=== PATIENT | male | born 1945 | race Caucasian/White ===

== ENCOUNTER 2025-01-07 17:37 | Observation (INO) | payer MEDICARE, OTHER ==
--- NOTE | 2025-01-07 18:05 | ED ---
Fall HPI - General Chief Complaint: Fall Stated Complaint: Fall Time Seen by Provider: 01/07/25 17:43 Source: patient, EMS, RN notes reviewed Mode of arrival: EMS Limitations: no limitations - History of Present Illness Initial Comments: 79-year-old male presents emergency department complaint of a fall. Patient states he tripped, caught up in a garden hose falling striking his chest, right flank region. Patient states that he has pain chest, right flank right ribs. Patient states he noted some blood when he tried to urinate here in the emergency department. He has mild abdominal pressure. No prior urinary symptoms denies fevers or chills no head injury no loss conscious. - Related Data Allergies Allergy/AdvReac Type Severity Reaction Status Date / Time iodine Allergy Unknown Verified 01/07/25 17:40 Review of Systems ROS Statement: Those systems with pertinent positive or pertinent negative responses have been documented in the HPI. ROS Other: All systems not noted in ROS Statement are negative. Past Medical History Past Medical History: Cancer, Hypertension Additional Past Surgical History / Comment(s): skin ca removed scalp Past Alcohol Use History: None Reported Past Drug Use History: None Reported General Exam Limitations: no limitations General appearance: alert, in no apparent distress Head exam: Present: atraumatic, normocephalic, normal inspection Eye exam: Present: normal appearance, PERRL, EOMI. Absent: scleral icterus, conjunctival injection, periorbital swelling ENT exam: Present: normal exam, mucous membranes moist Neck exam: Present: normal inspection. Absent: tenderness, meningismus, lymphadenopathy Respiratory exam: Present: normal lung sounds bilaterally, chest wall tenderness. Absent: respiratory distress, wheezes, rales, rhonchi, stridor Cardiovascular Exam: Present: regular rate, normal rhythm, normal heart sounds. Absent: systolic murmur, diastolic murmur, rubs, gallop, clicks GI/Abdominal exam: Present: soft, normal bowel sounds. Absent: distended, tenderness, guarding, rebound, rigid Back exam: Present: normal inspection, full ROM, tenderness, CVA tenderness (R). Absent: paraspinal tenderness, vertebral tenderness Neurological exam: Present: alert, oriented X3, CN II-XII intact, reflexes normal. Absent: motor sensory deficit Skin exam: Present: warm, dry, intact, normal color. Absent: rash Course Vital Signs 01/07/25 17:41 Temperature 97.1 F L Pulse Rate 82 Respiratory 18 Rate Blood Pressure 160/90 O2 Sat by Pulse 97 Oximetry Medical Decision Making - Medical Decision Making Was pt. sent in by a medical professional or institution ([facility] Cervantes, SEO MARKETING SPECIALIST, urgent care, hospital, or retirement...) When possible be specific @ -No Did you speak to anyone other than the patient for history (EMS, parent, family, police, friend...)? What history was obtained from this source @ -No Did you review nursing and triage notes (agree or disagree)? Why? @ -I reviewed and agree with nursing and triage notes Were old charts reviewed (outside hosp., previous admission, EMS record, old EKG, old radiological studies, urgent care reports/EKG's, retirement records)? Report findings @ -No old charts were reviewed Differential Diagnosis (chest pain, altered mental status, abdominal pain women, abdominal pain men, vaginal bleeding, weakness, fever, dyspnea, syncope, headache, dizziness, GI bleed, back pain, seizure, CVA, palpatations, mental health, musculoskeletal)? @ -fall, rib contusion, rib fracture pneumothorax liver laceration, renal laceration EKG interpreted by me (3pts min.). @ -As above X-rays interpreted by me (1pt min.). @ -None done CT interpreted by me (1pt min.). @ -CT brain, C-spine, chest abdomen pelvis showing 4 rib fractures on the right without other acute process. U/S interpreted by me (1pt. min.). @ -None done What testing was considered but not performed or refused? (CT, X-rays, U/S, labs )? Why? @ -None What meds were considered but not given or refused? Why? @ -None Did you discuss the management of the patient with other professionals (professionals i.e. DIO Cervantes, SEO MARKETING SPECIALIST, lab, RT, psych nurse, social work therapist, machine stamper, teacher, employment security officer, case managers)? Give summary @ -Dr. Colon for admission Was smoking cessation discussed for >3mins.? @ -No Was critical care preformed (if so, how long)? @ -No Were there social determinants of health that impacted care today? How? (Homelessness, low income, unemployed, alcoholism, drug addiction, transportation, low edu. Level, literacy, decrease access to med. care, snf, rehab)? @ -No Was there de-escalation of care discussed even if they declined (Discuss DNR or withdrawal of care, Hospice)? DNR status @ -No What co-morbidities impacted this encounter? (DM, HTN, Smoking, COPD, CAD, Cancer, CVA, ARF, Chemo, Hep., AIDS, mental health diagnosis, sleep apnea, morbid obesity)? @ -None Was patient admitted / discharged? Hospital course, mention meds given and route, prescriptions, significant lab abnormalities, going to OR and other pe rtinent info. @ -Mated patient presented after a fall. Patient has multiple rib fractures. Patient be admitted for pain management, pulmonary evaluation anesthesia evaluation Undiagnosed new problem with uncertain prognosis? @ -No Drug Therapy requiring intensive monitoring for toxicity (Heparin, Nitro, Insulin, Cardizem)? @ -No Were any procedures done? @ -No Diagnosis/symptom? @ -Fall multiple rib fractures Acute, or Chronic, or Acute on Chronic? @ -Acute Uncomplicated (without systemic symptoms) or Complicated (systemic symptoms)? @ -Complicated Side effects of treatment? @ -No Exacerbation, Progression, or Severe Exacerbation? @ -No Poses a threat to life or bodily function? How? (Chest pain, [place], [place], pneumonia, PE, COPD, DKA, ARF, appy, cholecystitis, CVA, Diverticulitis, Homicidal, Suicidal, threat to staff... and all critical care pts) @ -No - Lab Data Result diagrams: 01/07/25 17:59 01/07/25 17:59 Lab Results 01/07/25 01/07/25 01/07/25 Range/Units 17:59 17:59 18:00 WBC 8.33 (4.50-10.00) 10*3/uL RBC 4.56 (4.40-5.60) 10*6/uL Hgb 14.3 (13.0-17.0) g/dL Hct 43.4 (39.6-50.0) % MCV 95.2 (80.0-97.0) fL MCH 31.4 (27.0-32.0) pg MCHC 32.9 (32.0-37.0) g/dL Plt Count 134 L (140-440) 10*3/uL MPV 10.4 (9.5-12.2) fL Immature Gran % (Auto) 1.2 % Neutrophils % 82.4 % Lymphocytes % 9.6 % Monocytes % 4.9 % Eosinophils % 1.3 % Basophils % 0.6 % Immature Gran # 0.10 H (0.00-0.04) 10*3/uL Neutrophils # 6.86 (1.80-7.70) 10*3/uL Lymphocytes # 0.80 L (0.90-5.00) 10*3/uL Monocytes # 0.41 (0.20-1.00) 10*3/uL Eosinophils # 0.11 (0.04-0.35) 10*3/uL Basophils # 0.05 (0.00-0.10) 10*3/uL Immature Plt Fraction 2.8 (1.1-6.1) % Sodium 139 (137-145) mmol/L Potassium 4.8 (3.5-5.1) mmol/L Chloride 106 (98-107) mmol/L Carbon Dioxide 24 (22-30) mmol/L Anion Gap 9 mmol/L BUN 21 H (9-20) mg/dL Creatinine 1.08 (0.66-1.25) mg/dL Est GFR (CKD-EPI)AfAm 76 (>60 ml/min/1.73 sqM) Est GFR (CKD-EPI)NonAf 66 (>60 ml/min/1.73 sqM) Glucose 92 (74-99) mg/dL Calcium 9.2 (8.4-10.2) mg/dL Total Bilirubin 0.6 (0.2-1.3) mg/dL AST 22 (17-59) U/L ALT 15 (4-49) U/L Alkaline Phosphatase 87 (38-126) U/L Total Protein 6.6 (6.3-8.2) g/dL Albumin 4.2 (3.5-5.0) g/dL Urine Color Light Red Urine Appearance Cloudy (Clear) Urine pH 6.0 (5.0-8.0) Ur Specific [place] 1.020 (1.001-1.035) Urine Protein Trace H (Negative) Urine Glucose (UA) Negative (Negative) Urine Ketones Negative (Negative) Urine Blood Large H (Negative) Urine Nitrite Negative (Negative) Urine Bilirubin Negative (Negative) Urine Urobilinogen <2.0 (<2.0) mg/dL Ur Leukocyte Esterase Trace H (Negative) Urine RBC >182 H (0-5) /hpf Urine WBC 7 H (0-5) /hpf Ur Squamous Epith Cells <1 (0-4) /hpf Urine Mucus Rare H (None) /hpf Disposition Clinical Impression: Fall, Multiple fractures of ribs Disposition: ADMITTED IP TO THIS [facility] Condition: Fair Referrals: Nonstaff,Physician [Primary Care Provider] - 1-2 days Time of Disposition: 19:57
[2025-01-07] MEDS: SODIUM CHLORIDE 0.9% 1,000 ML IV ONE (18:09)
[2025-01-07] MEDS: methylPREDNISolone SOD SUCCI 125 MG/2 ML VIAL IV STA (18:09)
[2025-01-07] MEDS: diphenhydrAMINE 50 MG/ML 1 ML VIAL IVP STA (18:10)
[2025-01-07] MEDS: FAMOTIDINE 20 MG/2 ML VIAL IV STA (18:10)
[2025-01-07 18:13] LABS: Basophils # (A) 0.05 10*3/uL (0.00-0.10); Basophils % (A) 0.6 %; Eosinophils # (A) 0.11 10*3/uL (0.04-0.35); Eosinophils % (A) 1.3 %; HCT 43.4 % (39.6-50.0); HGB 14.3 g/dL (13.0-17.0); Immature Platelet Fraction 2.8 % (1.1-6.1); Lymphocytes # (A) 0.80 10*3/uL (0.90-5.00); Lymphocytes % (A) 9.6 %; MCH 31.4 pg (27.0-32.0); MCHC 32.9 g/dL (32.0-37.0); MCV 95.2 fL (80.0-97.0); Monocytes # (A) 0.41 10*3/uL (0.20-1.00); Monocytes % (A) 4.9 %; Neutrophils # (A) 6.86 10*3/uL (1.80-7.70); Neutrophils % (A) 82.4 %; Platelet Count 134 10*3/uL (140-440); RBC 4.56 10*6/uL (4.40-5.60); RDW 14.3 % (11.5-14.5); WBC 8.33 10*3/uL (4.50-10.00)
[2025-01-07 18:21] LABS: ALT 15 U/L (4-49); AST 22 U/L (17-59); African American GFR (CKD) 76 (>60 ml/min/1.73 sqM); Albumin 4.2 g/dL (3.5-5.0); Alkaline Phosphatase 87 U/L (38-126); Anion Gap 9 mmol/L; Blood Urea Nitrogen 21 mg/dL (9-20); Calcium 9.2 mg/dL (8.4-10.2); Carbon Dioxide 24 mmol/L (22-30); Chloride 106 mmol/L (98-107); Glucose 92 mg/dL (74-99); Non-African American GFR(CKD) 66 (>60 ml/min/1.73 sqM); Potassium 4.8 mmol/L (3.5-5.1); Sodium 139 mmol/L (137-145); Total Protein 6.6 g/dL (6.3-8.2)
[2025-01-07 18:49] LABS: Bilirubin,Urine Negative (Negative); Blood,Urine Large (Negative); Color,Urine Light Red; Glucose,Urine (UA) Negative (Negative); Ketones,Urine Negative (Negative); Leukocyte Esterase,Urine Trace (Negative); Mucus,Urine Rare /hpf; Nitrite,Urine Negative (Negative); PH, Urine 6.0 (5.0-8.0); Protein,Urine Trace (Negative); RBC,Urine >182 /hpf (0-5); Specific Gravity,Urine 1.020 (1.001-1.035); Squamous Epithelial Cell,Urine <1 /hpf (0-4); Urobilinogen,Urine <2.0 mg/dL (<2.0); WBC,Urine 7 /hpf (0-5)
--- NOTE | 2025-01-07 19:45 | CT ---
EXAMINATION TYPE: CT ChestAbdPelvis w con DATE OF EXAM: 01/07/2025 7:28 PM COMPARISON: None. CLINICAL INDICATION: Male, 79 years old with history of fall, pain, hematuria; PHH, Fall Pt c/o simon al chest pain, R rib pain. Denies LOC, neck pain, back pain. During triage, pt reports he needs to v oid urgently. Pt reports difficulty voiding, burning, and hematuria. Technique: CT ChestAbdPelvis w con; Multiple axial images were obtained. Two-dimensional coronal and sagittal reconstructions were obtained. Contrast used:100 ml mL of Isovue 300 with IV Contrast, (None if empty) Oral contrast used: without Oral Contrast CT DLP: 1107.3 mGycm, Automated exposure control for dose reduction was used. Findings: CHEST: LUNGS/ PLEURA: No focal consolidation, pneumothorax or pleural effusion. AIRWAY: Patent and unremarkable. HEART: Size within normal limits. MEDIASTINUM: No gross evidence of adenopathy. VASCULATURE: No aortic aneurysm. MUSCULOSKELETAL: No acute osseous abnormalities. SOFT TISSUES/LYMPH NODES: Unremarkable. LOWER NECK: No significant findings. ABDOMEN: ABDOMEN LIVER: Unremarkable GALLBLADDER AND BILE DUCTS: Unremarkable. PANCREAS: Unremarkable. SPLEEN: Unremarkable. ADRENAL GLANDS: Unremarkable. KIDNEYS AND URETERS: No evidence of hydronephrosis or renal calculus. The ureters are unremarkable. PELVIS BLADDER: Unremarkable REPRODUCTIVE: Unremarkable. ABDOMEN & PELVIS STOMACH AND BOWEL: Stomach and duodenum are unremarkable. No evidence of bowel obstruction. PERITONEUM/RETROPERITONEUM: No evidence of pneumoperitoneum or free fluid. VASCULATURE: No evidence of aortic aneurysm. MUSCULOSKELETAL: Newly displaced fracture of the right lateral seventh rib and nondisplaced fractures of the right anterior fourth, fifth and sixth ribs. Age-indeterminate possible chronic moderate (kandy roximately 40% vertebral body height loss) compression deformity of the T3 vertebral body with associ ated Schmorl's node formation. LYMPH NODES: No gross evidence for lymphadenopathy. SOFT TISSUE/ABDOMINAL WALL: Unremarkable IMPRESSION: 1. Minimally displaced fracture of the right lateral seventh rib and nondisplaced fractures of the f ourth-sixth right anterior ribs. 2. Age-indeterminate moderate compression deformity of the T3 vertebral body, possibly chronic given associated Schmorl's node formation. Consider correlation with any prior outside imaging if availabl e. 3. No acute traumatic abnormality in the abdomen/pelvis. [facility], , 01/07/2025 7:43 PM
[2025-01-07] MEDS ORDERED: NALOXONE 0.4 MG/ML 1 ML VIAL IV PRN (19:58)
[2025-01-07] MEDS ORDERED: ONDANSETRON 4 MG/2 ML VIAL IVP PRN (19:58)
[2025-01-07] MEDS ORDERED: KETOROLAC 15 MG/ML 1 ML VIAL IVP PRN (19:58)
[2025-01-07] MEDS ORDERED: HYDROmorphone 0.5 MG/0.5 ML SYRINGE IVP PRN (20:00)
[2025-01-07] MEDS: HYDROmorphone 0.5 MG/0.5 ML SYRINGE IVP STA (22:06)
[2025-01-07] MEDS: ONDANSETRON 4 MG/2 ML VIAL IVP STA (22:06)
[2025-01-07 22:21] VITALS: RESP 16
[2025-01-08 07:28] LABS: Basophils # (A) 0.01 10*3/uL (0.00-0.10); Basophils % (A) 0.2 %; Eosinophils # (A) 0.00 10*3/uL (0.04-0.35); Eosinophils % (A) 0.0 %; HCT 41.2 % (39.6-50.0); HGB 13.1 g/dL (13.0-17.0); Lymphocytes # (A) 0.37 10*3/uL (0.90-5.00); Lymphocytes % (A) 6.0 %; MCH 30.3 pg (27.0-32.0); MCHC 31.8 g/dL (32.0-37.0); MCV 95.4 fL (80.0-97.0); Monocytes # (A) 0.27 10*3/uL (0.20-1.00); Monocytes % (A) 4.4 %; Neutrophils # (A) 5.46 10*3/uL (1.80-7.70); Neutrophils % (A) 89.1 %; Platelet Count 129 10*3/uL (140-440); RBC 4.32 10*6/uL (4.40-5.60); RDW 14.6 % (11.5-14.5); WBC 6.13 10*3/uL (4.50-10.00)
--- NOTE | 2025-01-08 07:50 | XR ---
EXAMINATION TYPE: XR chest 1V portable DATE OF EXAM: 01/08/2025 7:39 AM COMPARISON: CT chest abdomen and pelvis 01/07/2025 TECHNIQUE: XR chest 1V portable Portable AP radiograph of the chest. CLINICAL INDICATION:Male, 79 years old with history of Chest Trauma; pain FINDINGS: Lungs/Pleura: There is no evidence of pleural effusion, focal consolidation, or pneumothorax. Pulmonary vascularity: Unremarkable. Heart/mediastinum: Cardiomediastinal silhouette is enlarged. Musculoskeletal: Known right-sided rib fractures are better appreciated on recent CT. IMPRESSION: Known right-sided rib fractures are better appreciated on recent CT. No pneumothorax. [facility], , 01/08/2025 7:47 AM
[2025-01-08] MEDS: HYDROcodone/APAP 5-325MG 1 EACH TAB PO PRN (08:06)
[2025-01-08 08:17] VITALS: BP 128/76; PULSE 71; TEMP 98.8
[2025-01-08] MEDS: MIDODRINE 5 MG TAB PO SCH (09:30)
[2025-01-08] MEDS: SERTRALINE 50 MG TAB PO SCH (09:43)
[2025-01-08] MEDS: ATORVASTATIN 40 MG TAB PO SCH (09:43)
[2025-01-08] MEDS: TAMSULOSIN 0.4 MG CAP.ER.24H PO SCH (09:43)
[2025-01-08] MEDS: FLUDROCORTISONE 0.1 MG TAB PO SCH (09:43)
[2025-01-08] MEDS: FINASTERIDE 5 MG TAB PO SCH (09:43)
[2025-01-08] MEDS: LORATADINE-PSEUDOEPH 5-120 MG 1 EACH TAB.ER.12H PO SCH (09:43)
--- NOTE | 2025-01-08 12:40 | P.CNPUL ---
History of Present Illness Consult date: 01/08/25 Reason for consult: chest pain Chief complaint: Fall History of present illness: This is a 79-year-old male patient, lives in [place] and he owns a property in [facility] and the patient was doing some work on his yard when he tripped on a hose and he fell. He landed on his right side and he came into the emergency department complaining of pain in his chest and right flank and right rib cage. He did encounter some transient hematuria which recovered and the patient's urine output is currently clear. In the emergency, the patient had a CAT scan of the chest abdomen pelvis and it showed minimally displaced right lateral seventh rib and a nondisplaced fractures involving the 4th through 6th rib on the right. The patient also has moderate compression fracture of the T3 vertebral spine. No other acute thoracic abnormalities. No other acute intra-abdominal abnormalities. No change in mental status. No headaches. No head trauma. No loss of consciousness. No seizure activity. No cardiac a rrhythmias. Blood work essentially within normal limits. UA showed blood consistent with hematuria. The patient has been somewhat unsteady in his gait according to family. He is currently using the incentive spirometer. He is pulling approximately 3000 on his I-S. Pain is under adequate control and the patient is currently on Toradol and [place] orally. He has previous history of prostate cancer and is treated with radiation therapy and his PSA has been low. He has hyperlipidemia maintained on Lipitor and is also on Proscar and Flomax. Review of Systems Constitutional: Reports as per HPI Eyes: bilateral as per HPI, bilateral blurred vision, bilateral bulging eye, bilateral decreased vision, bilateral diplopia, bilateral discharge, bilateral dry eye, bilateral irritation, bilateral itching, bilateral pain, bilateral ph otophobia, bilateral loss of peripheral vision, bilateral loss of vision, bilateral tunnel vision/blind spots Ears: deny: decreased hearing, ear discharge, earache, tinnitus Ears, nose, mouth and throat: Reports as per HPI Breasts: absent: as per HPI, gynecomastia Cardiovascular: Reports as per HPI, Reports chest pain Respiratory: Reports as per HPI Gastrointestinal: Reports as per HPI Genitourinary: Reports as per HPI, Reports hematuria, Reports urinary frequency, Reports urinary hesitancy, Reports urinary retention Musculoskeletal: Reports as per HPI Musculoskeletal: absent: ankle pain, ankle stiffness, ankle swelling, as per HPI, elbow pain, elbow stiffness, elbow swelling, foot pain, foot stiffness, foot swelling, hand pain, hand stiffness, hand swelling, hip pain, hip stiffness, hip swelling, knee pain, knee stiffness, knee swelling, shoulder pain, shoulder stiffness, shoulder swelling, wrist pain, wrist stiffness, wrist swelling Integumentary: Reports as per HPI Neurological: Reports as per HPI Psychiatric: Reports as per HPI Endocrine: Reports as per HPI Hematologic/Lymphatic: Reports as per HPI Allergic/Immunologic: Reports as per HPI Past Medical History Past Medical History: Cancer Additional Past Medical History / Comment(s): Prostate CA 2013, POST RADIATION THERAPY History of Any Multi-Drug Resistant Organisms: None Reported Additional Past Surgical History / Comment(s): skin ca removed scalp, knee replacement Smoking Status: Never smoker Past Alcohol Use History: None Reported Past Drug Use History: None Reported Medications and Allergies Home Medications Medication Instructions Recorded Confirmed Type Atorvastatin [Lipitor] 40 mg PO DAILY 01/07/25 01/07/25 History Finasteride [Proscar] 5 mg PO DAILY 01/07/25 01/07/25 History Fludrocortisone [Florinef] 0.1 mg PO DAILY 01/07/25 01/07/25 History Loratadine/Pseudoephedrine 1 tab PO DAILY 01/07/25 01/07/25 History [Loratadine-D 24 Hour Tablet] Midodrine HCl 10 mg PO TID 01/07/25 01/07/25 History Sertraline [Zoloft] 50 mg PO DAILY 01/07/25 01/07/25 History Tamsulosin [Flomax] 0.4 mg PO BID 01/07/25 01/07/25 History Allergies Allergy/AdvReac Type Severity Reaction Status Date / Time iodine Allergy Anaphylaxis Verified 01/07/25 20:20 Physical Exam Vitals: Vital Signs Temp Pulse Pulse Resp BP BP Pulse Ox 01/08/25 08:00 98.8 F 71 16 128/76 95 01/08/25 01:10 98 F 77 16 120/78 97 01/07/25 21:40 98.2 F 90 16 147/86 95 01/07/25 17:41 97.1 F L 82 18 160/90 97 Intake and Output 01/07/25 01/08/25 01/08/25 22:59 06:59 14:59 Output Total 500 Balance -500 Output: Urine 500 Other: Voiding Method Diaper External Catheter Weight 81.647 kg The patient appeared well nourished and normally developed. Vital signs as documented. The patient is calm and comfortable on room air oxygen. Head exam is unremarkable. No scleral icterus or corneal arcus noted. Neck is without jugular venous distension, thyromegaly, or carotid bruits. Carotid upstrokes are brisk bilaterally. Lungs are clear to auscultation and percussion. The patient is encountering some soreness and tenderness over the right anterior chest area upon palpation. No deformities. Equal and symmetrical air entry bilaterally. Cardiac exam reveals the PMI to be normally sized and situated. Rhythm is regular. First and second heart sounds normal. No murmurs, rubs or gallops. Abdominal exam reveals normal bowel sounds, no masses, no organomegaly and no aortic enlargement. Extremities are nonedematous and both femoral and pedal pulses are normal. Examination of the skin revealed no evidence of significant rashes, suspicious appearing nevi or other concerning lesions. Neurologically, the patient is awake and alert and the patient does not have any focal neurological deficit. Cranial nerves are essentially intact. Results - Laboratory Findings CBC and BMP: 01/08/25 06:23 01/07/25 17:59 Abnormal lab findings: Abnormal Labs 01/07/25 01/07/25 01/07/25 17:59 17:59 18:00 RBC MCHC RDW Plt Count 134 L Immature Gran # 0.10 H Lymphocytes # 0.80 L Eosinophils # BUN 21 H Urine Protein Trace H Urine Blood Large H Ur Leukocyte Esterase Trace H Urine RBC >182 H Urine WBC 7 H Urine Mucus Rare H 01/08/25 06:23 RBC 4.32 L MCHC 31.8 L RDW 14.6 H Plt Count 129 L Immature Gran # Lymphocytes # 0.37 L Eosinophils # 0.00 L BUN Urine Protein Urine Blood Ur Leukocyte Esterase Urine RBC Urine WBC Urine Mucus - Diagnostic Findings CT scan - chest: image reviewed Assessment and Plan Plan: Fall Nondisplaced traumatic right-sided rib fractures involving 4 through 6 and seventh rib. No evidence of pneumothorax. No evidence of hemothorax. No evidence of any pulmonary contusion. Oxygenation is stable and the patient using incentive spirometer Chest wall pain secondary to above Hematuria secondary to trauma, recovered and the patient's urine output is clear Prostate cancer, history of, treated with radiation therapy back in 2013 Hyperlipidemia Compression fracture of the T3 spine, likely chronic Plan Continue using incentive spirometer Pain control Assess mobility. The patient was provided a walker. The patient was going to work with the nursing staff and his ability to walk safely will be evaluated. Family is interested in taking the patient home. I think this is possible if the patient is cleared by trauma surgery and he has safe mobility and gait. Respiratory status is stable.
--- NOTE | 2025-01-08 13:13 | P.GSHP ---
History of Present Illness 79-year-old male presents emergency department complaint of a fall. Patient states he tripped, caught up in a garden hose falling striking his chest, right flank region. Patient states that he has pain chest, right flank right ribs. Patient states he noted some blood when he tried to urinate here in the emergency department. He has mild abdominal pressure. No prior urinary symptoms denies fevers or chills no head injury no loss conscious. - Constitutional Constitutional: Reports as per HPI Past Medical History Past Medical History: Cancer Additional Past Medical History / Comment(s): Prostate CA 2013, POST RADIATION THERAPY History of Any Multi-Drug Resistant Organisms: None Reported Additional Past Surgical History / Comment(s): skin ca removed scalp, knee repl acement Smoking Status: Never smoker Past Alcohol Use History: None Reported Past Drug Use History: None Reported Medications and Allergies Home Medications Medication Instructions Recorded Confirmed Type Atorvastatin [Lipitor] 40 mg PO DAILY 01/07/25 01/07/25 History Finasteride [Proscar] 5 mg PO DAILY 01/07/25 01/07/25 History Fludrocortisone [Florinef] 0.1 mg PO DAILY 01/07/25 01/07/25 History Loratadine/Pseudoephedrine 1 tab PO DAILY 01/07/25 01/07/25 History [Loratadine-D 24 Hour Tablet] Midodrine HCl 10 mg PO TID 01/07/25 01/07/25 History Sertraline [Zoloft] 50 mg PO DAILY 01/07/25 01/07/25 History Tamsulosin [Flomax] 0.4 mg PO BID 01/07/25 01/07/25 History HYDROcodone/APAP 5-325MG [[place] 1 tab PO Q8H PRN #15 tab 01/08/25 Rx 5-325] Allergies Allergy/AdvReac Type Severity Reaction Status Date / Time iodine Allergy Anaphylaxis Verified 01/07/25 20:20 Surgical - Exam Osteopathic Statement: *. No significant issues noted on an osteopathic structural exam other than those noted in the History and Physical/Consult. Vital Signs Temp Pulse Resp BP Pulse Ox 97.1 F L 82 18 160/90 97 01/07/25 17:41 01/07/25 17:41 01/07/25 17:41 01/07/25 17:41 01/07/25 17:41 gen: nad cv: rrr thoracic: pain upon palpation of the right lateral chest pul: non labored breathing abd: soft, non distended, non tender to palpation, back: no pain, no deformity Results - Labs 01/08/25 06:23 01/07/25 17:59 Abnormal Lab Results - Last 24 Hours (Table) 01/07/25 01/07/25 01/07/25 Range/Units 17:59 17:59 18:00 RBC (4.40-5.60) 10*6/uL MCHC (32.0-37.0) g/dL RDW (11.5-14.5) % Plt Count 134 L (140-440) 10*3/uL Immature Gran # 0.10 H (0.00-0.04) 10*3/uL Lymphocytes # 0.80 L (0.90-5.00) 10*3/uL Eosinophils # (0.04-0.35) 10*3/uL BUN 21 H (9-20) mg/dL Urine Protein Trace H (Negative) Urine Blood Large H (Negative) Ur Leukocyte Esterase Trace H (Negative) Urine RBC >182 H (0-5) /hpf Urine WBC 7 H (0-5) /hpf Urine Mucus Rare H (None) /hpf 01/08/25 Range/Units 06:23 RBC 4.32 L (4.40-5.60) 10*6/uL MCHC 31.8 L (32.0-37.0) g/dL RDW 14.6 H (11.5-14.5) % Plt Count 129 L (140-440) 10*3/uL Immature Gran # (0.00-0.04) 10*3/uL Lymphocytes # 0.37 L (0.90-5.00) 10*3/uL Eosinophils # 0.00 L (0.04-0.35) 10*3/uL BUN (9-20) mg/dL Urine Protein (Negative) Urine Blood (Negative) Ur Leukocyte Esterase (Negative) Urine RBC (0-5) /hpf Urine WBC (0-5) /hpf Urine Mucus (None) /hpf Diabetes panel 01/07/25 Range/Units 17:59 Sodium 139 (137-145) mmol/L Potassium 4.8 (3.5-5.1) mmol/L Chloride 106 (98-107) mmol/L Carbon Dioxide 24 (22-30) mmol/L BUN 21 H (9-20) mg/dL Creatinine 1.08 (0.66-1.25) mg/dL Glucose 92 (74-99) mg/dL Calcium 9.2 (8.4-10.2) mg/dL AST 22 (17-59) U/L ALT 15 (4-49) U/L Alkaline Phosphatase 87 (38-126) U/L Total Protein 6.6 (6.3-8.2) g/dL Albumin 4.2 (3.5-5.0) g/dL Calcium panel 01/07/25 Range/Units 17:59 Calcium 9.2 (8.4-10.2) mg/dL Albumin 4.2 (3.5-5.0) g/dL Pituitary panel 01/07/25 Range/Units 17:59 Sodium 139 (137-145) mmol/L Potassium 4.8 (3.5-5.1) mmol/L Chloride 106 (98-107) mmol/L Carbon Dioxide 24 (22-30) mmol/L BUN 21 H (9-20) mg/dL Creatinine 1.08 (0.66-1.25) mg/dL Glucose 92 (74-99) mg/dL Calcium 9.2 (8.4-10.2) mg/dL Adrenal panel 01/07/25 Range/Units 17:59 Sodium 139 (137-145) mmol/L Potassium 4.8 (3.5-5.1) mmol/L Chloride 106 (98-107) mmol/L Carbon Dioxide 24 (22-30) mmol/L BUN 21 H (9-20) mg/dL Creatinine 1.08 (0.66-1.25) mg/dL Glucose 92 (74-99) mg/dL Calcium 9.2 (8.4-10.2) mg/dL Total Bilirubin 0.6 (0.2-1.3) mg/dL AST 22 (17-59) U/L ALT 15 (4-49) U/L Alkaline Phosphatase 87 (38-126) U/L Total Protein 6.6 (6.3-8.2) g/dL Albumin 4.2 (3.5-5.0) g/dL Assessment and Plan Assessment: 79 yo male s/p fall w/ isolated non displaced right rib fracture incidental finding of age indeterminate T3 fracture, patient denies pain and admits to chronicity -pain control -on room air -incentive spirometer >2500 Time with Patient: Less than 30
--- NOTE | 2025-01-08 13:17 | P.DS ---
Providers Date of admission: 01/07/25 20:04 Attending physician: Norris Colon DO Consults: 01/07/25 19:58 Consult Physician Routine Consulting Provider: [facility] Consult Reason/Comments: Pulmonary Contusion Do you want consulting provider notified?: Yes Consult Physician Routine Consulting Provider: Edgar Akers Consult Reason/Comments: Medical management Do you want consulting provider notified?: Yes [facility] Course: Patient was observed in hospital for 1 day after fall and imaging confirm right sided rib fracture. Pain was controlled. On room air. Patient family at bedside and would like to send him home. Patient Condition at Discharge: Good Plan - Discharge Summary Discharge Rx Participant: No New Discharge Prescriptions: New HYDROcodone/APAP 5-325MG [Banco 5-325] 1 tab PO Q8H PRN #15 tab PRN Reason: Pain No Action Loratadine/Pseudoephedrine [Loratadine-D 24 Hour Tablet] 1 tab PO DAILY Sertraline [Zoloft] 50 mg PO DAILY Finasteride [Proscar] 5 mg PO DAILY Midodrine HCl 10 mg PO TID Tamsulosin [Flomax] 0.4 mg PO BID Fludrocortisone [Florinef] 0.1 mg PO DAILY Atorvastatin [Lipitor] 40 mg PO DAILY Discharge Medication List Atorvastatin [Lipitor] 40 mg PO DAILY 01/07/25 [History] Finasteride [Proscar] 5 mg PO DAILY 01/07/25 [History] Fludrocortisone [Florinef] 0.1 mg PO DAILY 01/07/25 [History] Loratadine/Pseudoephedrine [Loratadine-D 24 Hour Tablet] 1 tab PO DAILY 01/07/25 [History] Midodrine HCl 10 mg PO TID 01/07/25 [History] Sertraline [Zoloft] 50 mg PO DAILY 01/07/25 [History] Tamsulosin [Flomax] 0.4 mg PO BID 01/07/25 [History] HYDROcodone/APAP 5-325MG [Banco 5-325] 1 tab PO Q8H PRN #15 tab 01/08/25 [Rx] Follow up Appointment(s)/Referral(s): Nonstaff,Physician [REFERRING] - 1-2 days Patient Instructions/Handouts: Rib Fracture (DC) Activity/Diet/Wound Care/Special Instructions: ok for regular diet use pain meds as prescribed encourage ambulation and incentive spirometer use ok to shower ok to discharge to independent living facility Discharge Disposition: OTHER INSTITUTION NOT DEFINED
== END 2025-01-08 15:39 | disposition other institution (70) ==
LOC: EC 17:37 → 4SSUR 20:04
PROVIDERS: ADMIT Surgery; ATTEND Surgery
DX: S22.41XA Multiple fractures of ribs, right side, initial encounter for closed fracture (principal); R31.9 Hematuria, unspecified; M48.54XA Collapsed vertebra, not elsewhere classified, thoracic region, initial encounter for fracture; E78.5 Hyperlipidemia, unspecified; W01.0XXA Fall on same level from slipping, tripping and stumbling without subsequent striking against object, initial encounter; Z79.52 Long term (current) use of systemic steroids; Z79.899 Other long term (current) drug therapy; Z91.048 Other nonmedicinal substance allergy status; Z85.46 Personal history of malignant neoplasm of prostate; Z92.3 Personal history of irradiation
CPT/HCPCS: 96375 ×2; 96374; 99285; 36415; 80053; 85025 ×2; 81001; 71045; 71260; 74177; G0378 ×2; S0138; J1200; J2405; J1171; Q9967; J2919; J1308